=== PATIENT | female | born 1945 | race Caucasian/White ===

== ENCOUNTER → 2018-03-08 | Outpatient (CLI) | payer MEDICARE, BC ==
[~2018-03-08] MED LIST: LACT1CAP6 PO; LISI20TA29 PO; MELO-205 PO; MELO-207 PO
--- NOTE | 2018-03-08 15:48 | RADIOLOGY IMAGING REPORT ---
FACILITY: [facility] PATIENT NAME: Jacklyn Davies : 1945 MR: [id number] V: [id number] EXAM DATE: ORDERING PHYSICIAN: MICHOACANO GIBBONS TECHNOLOGIST: [place] [facility] [place] Jacklyn Davies : 1945 Visit/Account:[id number] Date of Sevice: 03/08/2018 DEXA Scan Clinical history: Asymptomatic postmenopausal state. Comparison: DEXA scan from 12/06/2012. LUMBAR SPINE: The bone mineral density (BMD) measured from L1-L4 correlates with a Z-score of 1.4 and a T-score of 0.3 which is Normal as defined by the World Health Organization. The corresponding risk of fracture in the lumbar spine is Not increased compared with a young adult reference population. This value painting s increase by 8.8 % since the prior study. More than 5% change is considered significant. HIP: Bone mineral density (BMD) measured in the LEFT total hip region correlates with a Z-score -0.3 and a T-score of -1.3 which is osteopenia as defined by the World Health Organization. The corresponding risk of fracture in the hip is 2-3 times increased compared to a young adult reference population. Th is value has increased by 0.5 % since the prior study. More than 5% change is considered significant . T score left femoral neck -1.9 Bone mineral density (BMD) measured in the Femoral Neck region measures 0.771 g/cm?. IMPRESSION: 1. Lumbar spine: Normal. There has been 8.8% increase in the bone mineral density since the previou s exam. 2. Left Total Hip: Osteopenia. There has been 0.5% increase in the bone mineral density since the p revious exam. 3. Femoral Neck: Bone Mineral Density is 0.771 g/cm? The next DEXA scan of this patient should include the following sites: L1-L4 and the left hip. FRAX? WHO Fracture Risk Assessment Tool link: <http://www.shef.ac.uk/FRAX/tool.jsp?locationValue=9> PLEASE NOTE: 1) The World Health Organization defines low BMD as follows: T-score Normal > -1 Osteopenia < -1 and > -2.5 Osteoporosis < -2.5 without fractures Established osteoporosis < -2.5 with fractures 2) In general, you may wish to consider: Diagnosis Treatment Follow-up DEXA Normal BMD Prevention 2-3 years Osteopenia Prevention/therapy 1-2 years Osteoporosis Therapy Yearly 3) Fracture risk estimated from the T-score is more accurate for vertebral fractures (often spontane ous) than for hip fractures. Report Dictated By: Chikis Ortega MD at 03/08/2018 3:40 PM Report E-Signed By: Chikis Ortega MD at 03/08/2018 3:43 PM WSN:[email or web address]
--- NOTE | 2018-03-09 17:34 | RADIOLOGY IMAGING REPORT ---
FACILITY: [facility] PATIENT NAME: LORRIE ARVIZU : [id number] MR: [id number] V: [id number] EXAM DATE: [id number] ORDERING PHYSICIAN: MICHOACANO GIBBONS TECHNOLOGIST: Vielka Finch PROCEDURE:BILATERAL DIGITAL SCREENING MAMMOGRAM WITH CAD ASSISTED INTERPRETATION & 3D TOMOSYNTHESIS COMPARISON:Prior mammograms 03/01/17, 12/16/15, 04/06/14, 11/09/12, 03/31/11. INDICATIONS:SCREENING FINDINGS: Moderately dense fibroglandular tissue is seen throughout the breasts. The parenchymal pattern has remained stable allowing for difference in mammographic technique & patient positioning. There is no evidence of malignant appearing mass, malignant appearing calcifications or other secondary sign of malignancy in either breast. DIAGNOSTIC CATEGORY 1--NEGATIVE. RECOMMENDATIONS: ROUTINE MAMMOGRAM AND CLINICAL EVALUATION. IMPRESSION: BIRADS 1: Negative. No significant abnormality is seen. Dictated by: Chikis Ortega M.D. on 03/08/2018 at 16:32 Transcribed by: ANKUR on 03/09/2018 at 8:59 Approved by: Chikis Ortega M.D. on 03/09/2018 at 17:33 [facility]
== END ==
LOC: MAMO 01:17
PROVIDERS: ATTEND Family Medicine
DX: Z12.31 Encounter for screening mammogram for malignant neoplasm of breast (principal); M85.88 Other specified disorders of bone density and structure, other site
CPT/HCPCS: 77063; 77067; 77080

== ENCOUNTER → 2018-03-31 | Outpatient (CLI) | payer MEDICARE, BC ==
[~2018-03-31] MED LIST changes: +LISI-353 PO; +MIRT7.5T2 PO
== END ==
LOC: LAB 10:51
PROVIDERS: ATTEND Family Medicine
DX: I10 Essential (primary) hypertension (principal)
CPT/HCPCS: 36415; 82310; 82374; 82435; 82565; 82947; 84132; 84295; 84520

== ENCOUNTER → 2018-10-24 | Outpatient (CLI) | payer MEDICARE, BC | LOC: LAB 16:01 | PROVIDERS: ATTEND Family Medicine | DX: N39.3 Stress incontinence (female) (male) (principal); I10 Essential (primary) hypertension; G47.9 Sleep disorder, unspecified; M19.90 Unspecified osteoarthritis, unspecified site; M85.80 Other specified disorders of bone density and structure, unspecified site; E66.9 Obesity, unspecified | CPT/HCPCS: 36415; 82310; 82374; 82435; 82565; 82947; 84132; 84295; 84443; 84520; 85027 ==